=== PATIENT | male | born 1970 | race African-American/Black ===

== ENCOUNTER 2017-04-03 10:00 | Inpatient (IN) | payer OTHER ==
[~2017-04-03] VITALS: Ht 167.6 cm; Wt 83.5 kg
--- NOTE | ~2017-04-03 | HP ---
Unit #: [id number] #: [id number] Patient: CAMILO SINGH [id number] [place] [address] [id number] MR#: [id number] NAME: CAMILO SINGH. ROOM: P208 Age: 47 Sex: M Admission Date: 04/03/2017 : 1970 Attending Physician: Rose Cuevas M.D. Admitting Physician: Rose Cuevas M.D. Primary Care Physician: Primary Care Physician No HISTORY AND PHYSICAL HISTORY OF PRESENT ILLNESS Camilo is a 47 year old, admitted to [address] [place] [id number] because of his continued drug use. He has had other admissions to this facility. PAST MEDICAL HISTORY 1. Long history of illicit substance abuse to include cocaine. 2. Chronic renal insufficiency. PAST SURGICAL HISTORY Bilateral inguinal hernia repair. ALLERGIES No known drug allergies. SOCIAL HISTORY He smokes one pack per day. He drinks alcohol rarely. Admits to a long history of illicit substance abuse to include cocaine. FAMILY HISTORY Medically noncontributory. REVIEW OF SYSTEMS CONSTITUTIONAL: No fever or chills. HEENT: Denies any sore throat, ear pain or runny nose. CARDIOVASCULAR: Denies chest pain, irregular heart rhythm or palpitations. CHEST: Denies shortness of breath or cough. No hemoptysis. GASTROINTESTINAL: Denies nausea, vomiting, diarrhea or chronic constipation. ENDOCRINE: Denies history of increased thirst or urination. No recent significant weight loss or gain. GENITOURINARY: Denies dysuria, frequency, or hematuria. SKIN: Denies any rashes. HEMATOLOGIC: Denies history of increased bleeding or bruising. MUSCULOSKELETAL: Denies any hot, swollen joints. No generalized muscle pain. NEUROLOGIC: Denies problems with vision or speech. No frequent, severe headaches. No numbness, tingling or weakness in any extremities. Denies loss of bladder or bowel control. CURRENT MEDICATIONS 1. Detox protocol 2. Zestril 10 mg daily 3. Seroquel 100 mg q.o.d. Unit #: [id number] #: [id number] Patient: CAMILO SINGH 4. Risperdal 2 mg b.i.d. 5. Vistaril 50 mg t.i.d. PHYSICAL EXAMINATION GENERAL: Alert, well-nourished, no apparent distress. VITAL SIGNS: Blood pressure 124/90, heart rate 80, respirations 16, and temperature 98.6. WEIGHT: 184 pounds. HEIGHT: 5 feet 6 inches. SKIN: Warm and dry without rash or lesion. HEENT: Normocephalic. TMs not viewed. Oral and nasal passages clear. Conjunctivae clear. PERRLA. EOMs intact. NECK: Supple without lymphadenopathy or thyromegaly. HEART: Regular rate and rhythm without murmur. LUNGS: Clear. ABDOMEN: Soft, nontender. : Not done. EXTREMITIES: No evidence of cyanosis, clubbing or edema. Moves all without focal deficit. NEUROLOGICAL: Grossly within normal limits. Cranial Nerves: II: Visual terry are intact. III, IV AND : Extraocular movements are intact. Pupils are equal, round and reactive to light. V: Facial sensation is grossly normal. VII: Facial movements and expression are normal. VIII: Auditory acuity grossly intact. IX, X: Uvula is midline. Phonation is normal. XI: Patient shrugs shoulders and turns head normally. XII: Tongue protrudes in the midline. Sensory and Motor Function: Sensory and motor sensation is grossly normal. Motor: moves all extremities well. Coordination: Gait is normal. Deep Tendon Reflexes: Intact. IMPRESSION Psychiatric admission. RECOMMENDATIONS Psychiatric, per psychiatrist. MEDICAL I see no contraindications to participating in facility's activities. MEDICAL PROGNOSIS Good. MEDICAL CONDITION Stable. Dictated by... Yessenia De Los Santos P.A.-C. for Katie Dior/monique TD: 04/04/2017 12:23 JOB #: [id number] Unit #: [id number] #: [id number] Patient: CAMILO SINGH HISTORY AND PHYSICAL Page 1 of 1 X Yessenia De Los Santos HISTORY AND PHYSICAL
--- NOTE | ~2017-04-03 | DS ---
Unit #: [id number] #: [id number] Patient: RAKEL MARTINEZ [id number] [facility] [place] [address] [id number] I MR#: [id number] NAME: RAKEL MARTINEZ. ROOM: P208 Age: 47 Sex: M Admission Date: 04/03/2017 : 1970 Discharge Date: 04/07/2017 Attending Physician: Rose Cuevas M.D. Primary Care Physician: Primary Care Physician No DISCHARGE SUMMARY IDENTIFYING DATA Mr. Martinez is a 47-year-old male, who is a resident of [place], [place] and is known to us from previous encounter who is self-referred to the hospital and accompanied by his mother. HISTORY OF PRESENT ILLNESS Please see initial psychiatric evaluation for details. PAST PSYCHIATRIC HISTORY Please see initial psychiatric evaluation for details. PAST MEDICAL HISTORY Please see initial psychiatric evaluation for details. HOSPITAL COURSE The patient [facility] and was oriented to the hospital and on routine p.r.n. medications were initiated and he was started back on his home medications and alcohol detox protocol was initiated as well. He was taking the medications regularly and was tolerating them fairly well and was able to show a decent therapy response in his depression and psychosis and was willing to continue treatment on an outpatient basis, and as such it was decided that he will be discharged and will continue treatment on an outpatient basis. DISCHARGE DIAGNOSES Gustine I Bipolar disorder, most recent episode depressed, recurrent, moderate, with psychosis. Alcohol dependence, moderate, in acute withdrawal. Cocaine dependence, moderate. Gustine II Gustine III None. Gustine IV Moderate psychosocial stressors. Gustine V DISCHARGE MEDICATIONS Seroquel 200 mg at bedtime CONDITION AT DISCHARGE Stable. Unit #: [id number] #: [id number] Patient: RAKEL MARTINEZ PROGNOSIS Fair. Dictated by... Katie Whelan/monique TD: 04/10/2017 10:54 JOB #: [id number] DISCHARGE SUMMARY Page 1 of 1 X Rose Cuevas MD X DISCHARGE SUMMARY
--- NOTE | ~2017-04-03 | PN ---
Unit #: [id number] #: [id number] Patient: RAKEL MARTINEZ [id number] [facility] [address] [place] [address] [id number] MR#: [id number] NAME: RAKEL MARTINEZ. ROOM: P208 Age: 47 Sex: M Admission Date: 04/03/2017 : 1970 Attending Physician: Rose Cuevas M.D. Admitting Physician: Rose Cuevas M.D. Primary Care Physician: Primary Care Physician Petra SAENZ PROGRESS NOTES DATE 04/05/2017 DISCUSSION Mr. Martinez is a 47-year-old male who was seen today and chart was reviewed and case was discussed with the staff. He has been anxious, withdrawn and rather seclusive to himself and reports persistent depression, anxiety and disturbed sleep and of course feeling uncomfortable. Meanwhile, he has been polite and pleasant and cooperative with treatment recommendations. MENTAL STATUS EXAMINATION Middle-aged male who was casually dressed with fair personal hygiene and appears to be in no acute distress or discomfort. He was awake and alert on interaction with intact orientation. His mood was anxious and depressed with congruent affect. His speech is slow and goal-directed. He denies any suicidal or homicidal ideation. His insight and judgement remains slightly impaired. TREATMENT PLAN 1. Will continue on his current medications and treatment protocol. Will monitor his response and make further adjustments as needed. 2. Will continue to follow up. Dictated by... Katie Whelan/my TD: 04/05/2017 18:48 JOB #: [id number] Unit #: [id number] #: [id number] Patient: RAKEL MARTINEZ LETTY PROGRESS NOTES Page 1 of 1 X Rose Cuevas MD PROGRESS NOTE
--- NOTE | ~2017-04-03 | PN ---
Unit #: [id number] #: [id number] Patient: RAKEL MARTINEZ [id number] [facility] [address] [place] [address] [id number] I MR#: [id number] NAME: RAKEL MARTINEZ. ROOM: P208 Age: 47 Sex: M Admission Date: 04/03/2017 : 1970 Attending Physician: Rose Cuevas M.D. Admitting Physician: Rose Cuevas M.D. Primary Care Physician: Primary Care Physician Petra SAENZ PROGRESS NOTES DATE 04/04/2017 DISCUSSION Mr. Martinez is a 47-year-old male who was seen today and chart was reviewed and case was discussed with the staff. He has been anxious, withdrawn, depressed and rather seclusive to himself with blunted affect and minimal interactions. Meanwhile, he has been taking the medications and tolerating them fairly well with no reported side effects. MENTAL STATUS EXAMINATION Middle-aged male who was casually dressed with fair personal hygiene and appears to be in no acute distress or discomfort. He was awake and alert on interaction with intact orientation. His mood was anxious and depressed with congruent affect. His speech is slow and goal-directed. He reports having suicidal ideations but denies any homicidal ideations. His insight and judgement remains slightly impaired. TREATMENT PLAN 1. Will continue on his current medications and treatment protocol. Will monitor response and make further adjustments as needed. 2. Will continue to follow up. Dictated by... Katie Whelan/my TD: 04/04/2017 22:53 JOB #: [id number] Unit #: [id number] #: [id number] Patient: RAKEL MARTINEZ LETTY PROGRESS NOTES Page 1 of 1 X Rose Cuevas MD PROGRESS NOTE
--- NOTE | ~2017-04-03 | PN ---
Unit #: [id number] #: [id number] Patient: RAKEL MARTINEZ [id number] [facility] [address] [place] [address] [id number] I MR#: [id number] NAME: RAKEL MARTINEZ. ROOM: P208 Age: 47 Sex: M Admission Date: 04/03/2017 : 1970 Attending Physician: Rose Cuevas M.D. Admitting Physician: Rose Cuevas M.D. Primary Care Physician: Primary Care Physician Petra SAENZ PROGRESS NOTES DATE OF SERVICE 04/06/2017 DISCUSSION Mr. Martinez is a 47-year-old male who was seen today. Chart was reviewed and case was discussed with staff. He has been anxious, withdrawn, and rather seclusive to himself. Meanwhile, he has been cooperative with treatment recommendations and has been taking the medications and tolerating them fairly well with no reported side effects. MENTAL STATUS EXAMINATION Middle-aged male who is casually dressed with fair personal hygiene, appears to be in no acute distress or discomfort. He was awake and alert on interaction with intact orientation. His mood is anxious with congruent affect. His speech is slow and goal-directed. He denies any suicidal or homicidal ideations and also denies any auditory or visual hallucinations. His insight and judgment remain slightly impaired. TREATMENT PLAN 1. We will continue him on his current medications and treatment protocol. We will monitor his response to the medications and make further adjustments as needed. 2. We will continue to follow up. Dictated by... Katie Whelan/shraddha TD: 04/06/2017 11:43 JOB #: [id number] Unit #: [id number] #: [id number] Patient: RAKEL MARTINEZLUIS EDUARDO PROGRESS NOTES Page 1 of 1 X Rose Cuevas MD PROGRESS NOTE
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
[~2017-04-03 10:00] MED LIST: ACETAMINOPHEN PO; AL-MAG HYDROX-S30 M1 PO; COREG3.125 MG PO; DESYREL100 MG PO; HYDROCODON-ACE1 EAC7 PO; MILK OF MAGNESIA PO; MOBIC PO; NICOTINE TRANSD14 MG EXT; NO MEDICATIONS; PAIN RELIEF325 MG PO; SEROQUEL50 MG PO; VISTARIL50 MG PO; WELLBUTRIN XL150 M1 PO; ZESTRIL10 MG PO
[2017-04-04 12:25] LABS: BASOPHIL# 0.1 X10e3 (0-0.3); BASOPHIL% 0.7 % (0-2.5); EOSINOPHIL# 0.2 X10e3 (0-0.7); EOSINOPHIL% 2.4 % (0.0-7.0); HEMATOCRIT 44.1 % (38.0-50.0); HEMOGLOBIN 14.7 gm/dL (13.0-16.0); LYMPHOCYTE# 2.2 X10e3 (1.0-3.5); LYMPHOCYTE% 30.9 % (17.0-45.0); MEAN CORPUSCULAR HEMOGLOBIN 29.4 PG (28-34); MEAN CORPUSCULAR HGB CONC 33.4 g/dL (30-36); MEAN PLATELET VOLUME 7.7 FL (6.5-11.5); MONOCYTE# 0.7 X10e3 (0-1.0); MONOCYTE% 9.5 % (3.0-12.0); NEUTROPHIL# 4.1 X10e3 (1.5-7.1); NEUTROPHIL% 56.5 % (40-75); PLATELET COUNT 267 X10e3 (140-420); RED BLOOD COUNT 5.01 X10e (3.90-5.60); RED CELL DISTRIBUTION WIDTH 14.8 % (11.0-15.5); WHITE BLOOD COUNT 7.2 X10e3 (4.0-10.5)
[2017-04-04 12:29] LABS: DIFF IND NO
[2017-04-04 12:59] LABS: ALBUMIN SERUM 3.5 g/dL (3.5-5.0); BILIRUBIN,TOTAL 0.9 mg/dL (0.2-2.0); BUN/CREATININE RATIO 13.33; CALCIUM SERUM 9.1 mg/dL (8.4-10.2); CREATININE SERUM 1.2 mg/dL (0.6-1.4); GLOM FILT RATE Estimated 84.2 mL/min (>60); POTASSIUM 4.2 mmol/L (3.5-5.1); PROTEIN TOTAL SERUM 5.9 g/dL (6.0-8.3)
[2017-04-06 09:44] LABS: URINE APPEARANCE CLEAR; URINE BILIRUBIN NEG (NEG); URINE BLOOD NEG (NEG); URINE COLOR YELLOW; URINE GLUCOSE NORM (NORM); URINE KETONE NEG (NEG); URINE LEUKOCYTE ESTERASE NEG (NEG); URINE NITRATE NEG (NEG); URINE PROTEIN NEG (NEG); URINE UROBILINOGEN NORM (NORM)
[2017-04-06 09:50] LABS: AMPHETAMINE NEG (NEG); BARBITURATES NEG (NEG); BENZODIAZEPINES POS (NEG); COCAINE POS (NEG); MARIJUANA NEG (NEG); OPIATES NEG (NEG); TRICYCLIC ANTIDEPRESSANTS NEG (NEG); U METHADONE NEG (NEG)
== END 2017-04-07 10:40 | disposition home or self-care (01) | DRG 885 ==
LOC: P2S 11:30
PROVIDERS: Psychiatry & Neurology Psychiatry
PROC: HZ2ZZZZ Detoxification Services for Substance Abuse Treatment (ICD-10-PCS; principal; 2017-04-03)
DX: F31.5 Bipolar disorder, current episode depressed, severe, with psychotic features (principal); F14.20 Cocaine dependence, uncomplicated; F10.239 Alcohol dependence with withdrawal, unspecified; F17.210 Nicotine dependence, cigarettes, uncomplicated
CPT/HCPCS: 80053; 80307; 81003; 85025; 86592